=== PATIENT | female | born 1985 | race Caucasian/White ===

== ENCOUNTER 2020-09-10 08:00 | Outpatient (CLI) | payer SELFPAY | END 2020-09-10 23:59 | LOC: LAB.WCP 08:00 | DX: Z01.89 Encounter for other specified special examinations (principal) | CPT/HCPCS: 36415 ==

== ENCOUNTER 2022-05-09 16:46 | Emergency (ER) | payer BC ==
[2022-05-09 16:56] VITALS: BP 146/73
--- OUTSIDE RECORDS SUMMARY | 2022-05-09 17:47 | EXTERNAL MEDICAL SUMMARY RPT | Continuity of Care Document ---
:1985 Author Organization [facility] Address [address] [place] [address] Phone Allergies No information. Encounters No information. Functional Status No information. Immunizations No information. Medications No information. Problems date description facility 2022-03-12 19:44 Submucous leiomyoma of uterus [facility] 2022-03-12 19:44 Abnormal uterine and vaginal bleeding, [facility] unspecified 2022-03-13 12:45 Submucous leiomyoma [facility] uterus [facility]-13 12:45 Abnormal uterine and vaginal bleeding, [facility] unspecified Procedures No information. Results/Labs test date author facility value unit interpret ation Result panel 1 (unknown) (no (unknown) (unknown) (no value) (units (unk nown) date) unknown) (unknown) (no (unknown) (unknown) 03/12/22 (units (unkno wn) date) unknown) (unknown) (no (unknown) (unknown) 1. Uterus is (units (u nknown) date) enlarged by unknown) multiple uterine fibroids, including several with (unknown) (no (unknown) (unknown) [address] (units (unknown) date) unknown) (unknown) (no (unknown) (unknown) [id number] (units (unkno wn) date) unknown) (unknown) (no (unknown) (unknown) 2. Right ovarian (units (unknown) date) corpus luteal unknown) cyst. (unknown) (no (unknown) (unknown) 5.9 cm (units (unkno wn) date) unknown) (unknown) (no (unknown) (unknown) Accession (units (unkn own) date) Number: unknown) [id number] (unknown) (no (unknown) (unknown) Adnexa: A (units (unkn own) date) peripherally unknown) enhancing right corpus luteal cyst is present. Both (unknown) (no (unknown) (unknown) Age/Sex: 36 / F (units (unknown) date) Date of Service: unknown) (unknown) (no (unknown) (unknown) [place], [place] (units ( unknown) date) [id number] unknown) (unknown) (no (unknown) (unknown) Approved by: (units (u nknown) date) Miguel Baeza unknownHuan Llanes on 03/13/2022 at 11:43 (unknown) (no (unknown) (unknown) Bones: Marrow (units ( unknown) date) demonstrates unknown) normal overall signal. (unknown) (no (unknown) (unknown) Bowel and (units (unkn own) date) peritoneum: No unknown) pathologic free pelvic fluid. Inferior colon and (unknown) (no (unknown) (unknown) COMPARISON: (units (un known) date) None. unknown) (unknown) (no (unknown) (unknown) Coronal HASTE, (units (unknown) date) sagittal unknown) breath-hold T2 FSE; axial T1 FSE with and without fat (unknown) (no (unknown) (unknown) : 1985 (units (unknown) date) Acct:[id number] unknown) (unknown) (no (unknown) (unknown) FINDINGS: (units (unkn own) date) unknown) (unknown) (no (unknown) (unknown) FSE through (units (un known) date) unknown) (unknown) (no (unknown) (unknown) IMPRESSION: (units (un known) date) unknown) (unknown) (no (unknown) (unknown) INDICATIONS: (units (u nknown) date) ABNORMAL UTERINE unknown) AND VAGINAL BLEEDING (unknown) (no (unknown) (unknown) Image quality: (units (unknown) date) Excellent. unknown) (unknown) (no (unknown) (unknown) [facility] (units (unknown) date) unknown) (unknown) (no (unknown) (unknown) Loc: MRI (units (unkno wn) date) unknown) (unknown) (no (unknown) (unknown) Magnetic (units (unkno wn) date) Resonance Report unknown) (unknown) (no (unknown) (unknown) Nodes and (units (unkn own) date) vessels: No unknown) pelvic or inguinal adenopathy by size criteria. Iliac (unknown) (no (unknown) (unknown) Ordering (units (unkno wn) date) Provider: unknown) Kandice Thomas P.A-C (unknown) (no (unknown) (unknown) PROCEDURE: MR (units ( unknown) date) PELVIS WO/W CON unknown) (unknown) (no (unknown) (unknown) Patient: (units (unkno wn) date) Ijeoma Camargo MR#: unknown) [id number] (unknown) (no (unknown) (unknown) Post-contrast (units ( unknown) date) axial or coronal unknown) VIBE/2-D FLASH with fat saturation from the (unknown) (no (unknown) (unknown) Procedure: MR (units ( unknown) date) pelvis wo/w con unknown) (unknown) (no (unknown) (unknown) Signed (units (unkno wn) date) unknown) (unknown) (no (unknown) (unknown) Soft tissues: No (units (unknown) date) inguinal hernias. unknown) No findings of pelvic floor incompetence (unknown) (no (unknown) (unknown) TECHNIQUE: (units (unk nown) date) unknown) (unknown) (no (unknown) (unknown) Urethra appears (units (unknown) date) normal in unknown) morphology. (unknown) (no (unknown) (unknown) Urinary system: (units (unknown) date) Bladder wall is unknown) normal in thickness. Distal ureters are non (unknown) (no (unknown) (unknown) Uterus: The (units (un known) date) uterus is unknown) enlarged measuring 12.4 x 8.9 by 8.9 cm. The (unknown) (no (unknown) (unknown) absence of (units (unk n) date) provocation. unknown) (unknown) (no (unknown) (unknown) anterior (units (unkno wn) date) submucosal unknown) fibroid measures 1.3 x 1.1 x 1.4 cm. Multiple additional (unknown) (no (unknown) (unknown) approximately (units ( unknown) date) 0.9 cm in unknown) thickness, but is distorted by multiple uterine (unknown) (no (unknown) (unknown) components. (units (un known) date) unknown) (unknown) (no (unknown) (unknown) distended. (units (unk nown) date) unknown) (unknown) (no (unknown) (unknown) endometrium (units (un known) date) measures unknown) (unknown) (no (unknown) (unknown) entirely (units (unkno wn) date) unknown) (unknown) (no (unknown) (unknown) fibroids are (units (u nknown) date) seen without unknown) significant submucosal component. (unknown) (no (unknown) (unknown) fibroids. The (units ( unknown) date) unknown) (unknown) (no (unknown) (unknown) iliac crests (units (u nknown) date) unknown) (unknown) (no (unknown) (unknown) in the (units (unkno wn) date) unknown) (unknown) (no (unknown) (unknown) largest fibroid (units (unknown) date) is and anterior unknown) fundal transmural fibroid measuring 5.2 x 4.3 x (unknown) (no (unknown) (unknown) loops are normal (units (unknown) date) in caliber. unknown) (unknown) (no (unknown) (unknown) midline (units (unkno wn) date) unknown) (unknown) (no (unknown) (unknown) normal and (units (unk nown) date) symmetric in unknown) size, without suspicious cystic or solid lesions. (unknown) (no (unknown) (unknown) normal in size. (units (unknown) date) unknown) (unknown) (no (unknown) (unknown) ovaries are (units (un known) date) unknown) (unknown) (no (unknown) (unknown) performed. (units (unk nown) date) unknown) (unknown) (no (unknown) (unknown) saturation (units (unk nown) date) unknown) (unknown) (no (unknown) (unknown) small bowel (units (un known) date) unknown) (unknown) (no (unknown) (unknown) submucosal (units (unk nown) date) fibroid is seen unknown) in the left anterior uterus. Additional smaller (unknown) (no (unknown) (unknown) submucosal (units (unk nown) date) unknown) (unknown) (no (unknown) (unknown) the uterus. (units (un known) date) Sagittal or axial unknown) dynamic VIBE during administration of contrast. (unknown) (no (unknown) (unknown) through the (units (un known) date) pelvis. Optional unknown) long- and short-axis uterine nonbreath-hold T2 (unknown) (no (unknown) (unknown) to the (units (unkno wn) date) symphysis. unknown) Optional diffusion weighted imaging and ADC may be (unknown) (no (unknown) (unknown) uterine (units (unkno wn) date) unknown) (unknown) (no (unknown) (unknown) vessels are (units (un known) date) unknown) (unknown) (no (unknown) (unknown) with subserosal (units (unknown) date) and small unknown) submucosal components. A 2.8 x 1.6 x 2.9 cm nearly Social History No information. Vital Signs No information.
--- NOTE | 2022-05-09 18:36 | ED Physician Documentation ---
History of Present Illness - Stated complaint Stated Complaint: LT EYE BLINDNESS,DIZZY,N - Chief complaint Chief Complaint: Heent - History obtained from History obtained from: Patient - Additonal information Additional information: She went to work today and started to see funny shapes in her vision in both eyes. Subsequently the shape got worse in the left eye such that she could not see through it at all and it looks like she was looking through a kaleidoscope. It was followed by some retro-orbital pressure and she still feels a little nauseous and dizzy but the visual symptoms are gone. PD PAST MEDICAL HISTORY - Allergies Allergies/Adverse Reactions: Allergies Allergy/AdvReac Type Severity Reaction Status Date / Time Penicillins Allergy Unknown Verified 05/09/22 16:56 PD ED PE NORMAL - Vitals Vital signs reviewed: Yes - General General: Alert and oriented X 3, No acute distress - HEENT HEENT: PERRL, EOMI, Other (normal fundi) - Neck Neck: Supple, no meningeal sign, No bony TTP - Cardiac Cardiac: RRR, No murmur - Respiratory Respiratory: No respiratory distress, Clear bilaterally - Abdomen Abdomen: Normal bowel sounds, Soft, Non tender - Back Back: No CVA TTP, No spinal TTP - Derm Derm: Normal color, Warm and dry - Neuro Neuro: Alert and oriented X 3, No motor deficit, No sensory deficit, Normal speech Eye Opening: Spontaneous Motor: Obeys Commands Verbal: Oriented GCS Score: 15 - Psych Psych: Normal mood Results - Vitals Vitals: Vital Signs - 24 hr 05/09/22 16:49 Temperature 36.5 C Heart Rate 82 Respiratory 20 Rate Blood Pressure 146/73 H O2 Saturation 100 Oxygen O2 Source Room air PD Medical Decision Making - ED course ED course: She rosalba a picture of what she was seeing and it was a fairly classic example of a angulated shape consistent with an ophthalmic migraine, resolved. Departure - Departure Disposition: 01 Home, Self Care Clinical Impression: Ophthalmic migraine Condition: Good Record reviewed to determine appropriate education?: Yes Instructions: ED Headache Migraine Comments: Return if you worsen, but otherwise your description of what happened today is very consistent with an ophthalmic migraine you should mention this episode to your primary care physician.
== END 2022-05-09 18:48 | disposition home or self-care (01) ==
LOC: ED 16:46
DX: G43.B0 Ophthalmoplegic migraine, not intractable (principal)
CPT/HCPCS: 99281; 99283